=== PATIENT | male | born 1960 | race Caucasian/White ===

== ENCOUNTER 2017-06-27 19:07 | Inpatient (IN) | payer OTHER ==
[~2017-06-27] VITALS: Ht 167.6 cm; Wt 69.5 kg
[~2017-06-27 19:07] MED LIST: AUGMENTIN875 MG PO; AZITHROMYCIN250 MG PO; BETAMETHASONE D45 G1 TP; CELEXA40 MG PO; CITALOPRAM HBR40 MG PO; CLONAZEPAM0.5 MG PO; FOLIC ACID1 MG PO; K-DUR20 MEQ PO; LEVAQUIN750 MG PO; LOSARTAN POTAS100 MG PO; LOSARTAN-HCTZ1 EAC1 PO; METOPROLOL SUCC25 MG PO; MULTIPLE VITAM1 EAC1 PO; NIFEDIPINE ER30 MG PO; NORCO 5/3251 TABLET PO; OMEPRAZOLE20 MG PO; PREDNISONE5 MG PO; ROBITUSSIN AC,T10 ML PO; SPIRIVA RESPIMAT4 GM IH; TYLENOL PM1 CAPLET PO; VITAMIN B-1100 MG PO; XARELTO20 MG PO; ZESTORETIC,P1 TABLE1 PO
[2017-06-27 20:01] LABS: HEMATOCRIT 35.6 % (38.0-50.0); HEMOGLOBIN 13.3 G/DL (12.5-16.6); MCH 37.5 PG (29.0-34.0); MCHC 37.4 G/DL (30.0-36.0); MCV 100.3 FL (86-99); PLATELET COUNT 155 K/uL (156-360); RBC DIS.WIDTH-CV 21.4 % (11.8-14.6); RED BLOOD COUNT 3.55 M/uL (4.00-5.50); WHITE BLOOD COUNT 11.8 K/uL (4.1-10.2)
[2017-06-27 20:11] LABS: CHLORIDE 94 mEq/L (99-109); SODIUM 137 mEq/L (136-147)
[2017-06-27 20:12] LABS: MAGNESIUM 1.2 mg/dL (1.3-2.7)
[2017-06-27 20:14] LABS: GLUCOSE 162 mg/dL (70-99)
[2017-06-27 20:17] LABS: CREATININE 1.2 mg/dL (0.6-1.3); GFR ESTIMATE (CALCULATED) > 59 mL/min/ (58.99-99999); POTASSIUM 1.9 mEq/L (3.7-5.4); SERUM ETHYL ALCOHOL < 10 mg/dL
[2017-06-27 20:19] LABS: UREA NITROGEN (BUN) 7 mg/dL (9-23)
[2017-06-27 20:21] LABS: ACETAMINOPHEN (TYLENOL) < 10 mcg/mL (10-30); SALICYLATE < 5.0 MG/DL (15-30)
[2017-06-27 21:16] LABS: TROP-I INTERPRETATION NEGATIVE; TROPONIN-I 0.02 ng/mL (0.0-0.30)
[2017-06-27] MEDS ORDERED: VITAMIN B-1250 MC3 PO (21:45)
[2017-06-27] MEDS ORDERED: TYLENOL PM EX-1 EACH PO (21:46)
[2017-06-27 22:23] LABS: FOLIC ACID (FOLATE) 3.9 NG/ML (5.0-22.0)
[2017-06-27 23:30] VITALS: BP 144/81
[2017-06-27 23:40] VITALS: BP 142/85
[2017-06-27 23:45] VITALS: BP 144/81
[2017-06-28] VITALS (26 sets, daily range): BP systolic 90–148; BP diastolic 56–92
[2017-06-28 00:29] LABS: INTER. NORMALIZED RATIO 1.7
[2017-06-28 00:32] LABS: PTT 32.7 SEC (25-37)
[2017-06-28 00:36] LABS: ALBUMIN 2.8 g/dL (3.2-4.8); CHLORIDE 99 mEq/L (99-109); SODIUM 137 mEq/L (136-147)
[2017-06-28 00:39] LABS: GLUCOSE 136 mg/dL (70-99); TOTAL PROTEIN 4.6 g/dL (6.4-8.3)
[2017-06-28 00:41] LABS: TOTAL BILIRUBIN 6.1 mg/dL (0.0-1.0)
[2017-06-28 00:42] LABS: ALKALINE PHOSPHATASE 124 IU/L (3-129); GFR ESTIMATE (CALCULATED) > 59 mL/min/ (58.99-99999)
[2017-06-28 00:44] LABS: AST (GOT) 53 IU/L (2-34); DIRECT BILIRUBIN 3.6 mg/dL (0.0-0.3); UREA NITROGEN (BUN) 7 mg/dL (9-23)
[2017-06-28 00:45] LABS: ALT (GPT) 20 IU/L (3-49)
[2017-06-28 00:46] LABS: POTASSIUM 1.6 mEq/L (3.7-5.4)
[2017-06-28 05:41] LABS: ALBUMIN 2.7 G/DL (3.2-4.8); ALKALINE PHOSPHATASE 107 IU/L (3-129); ALT (GPT) 16 IU/L (3-49); AST (GOT) 43 IU/L (2-34); CHLORIDE 100 MEQ/L (99-109); GFR ESTIMATE (CALCULATED) > 59 mL/min/ (58.99-99999); GLUCOSE 136 mg/dL (70-99); SODIUM 138 MEQ/L (136-147); TOTAL BILIRUBIN 6.2 MG/DL (0.0-1.0); TOTAL PROTEIN 4.2 G/DL (6.4-8.3); UREA NITROGEN (BUN) 7 mg/dL (9-23)
[2017-06-28 05:52] LABS: POTASSIUM 1.7 MEQ/L (3.7-5.4)
[2017-06-28 06:18] LABS: HEMATOCRIT 29.9 % (38.0-50.0); MCH 36.1 PG (29.0-34.0); MCHC 35.8 G/DL (30.0-36.0); RBC DIS.WIDTH-CV 21.9 % (11.8-14.6); RED BLOOD COUNT 2.96 M/uL (4.00-5.50); WHITE BLOOD COUNT 8.7 K/uL (4.1-10.2)
[2017-06-28 06:22] LABS: HEMOGLOBIN 10.7 G/DL (12.5-16.6); PLATELET COUNT 99 K/uL (156-360)
[2017-06-28 11:58] LABS: CHLORIDE 103 MEQ/L (99-109); GFR ESTIMATE (CALCULATED) > 59 mL/min/ (58.99-99999); GLUCOSE 191 mg/dL (70-99); SODIUM 138 MEQ/L (136-147); UREA NITROGEN (BUN) 8 mg/dL (9-23)
[2017-06-28 11:59] LABS: POTASSIUM 2.1 MEQ/L (3.7-5.4)
[2017-06-28 18:43] LABS: CHLORIDE 107 MEQ/L (99-109); CREATININE 0.9 MG/DL (0.6-1.3); GFR ESTIMATE (CALCULATED) > 59 mL/min/ (58.99-99999); GLUCOSE 113 mg/dL (70-99); POTASSIUM 2.4 MEQ/L (3.7-5.4); SODIUM 141 MEQ/L (136-147); UREA NITROGEN (BUN) 7 mg/dL (9-23)
[2017-06-29] VITALS (13 sets, daily range): BP systolic 85–124; BP diastolic 59–101
[2017-06-29 00:30] LABS: CHLORIDE 107 mEq/L (99-109); POTASSIUM 2.5 mEq/L (3.7-5.4); SODIUM 137 mEq/L (136-147)
[2017-06-29 00:32] LABS: GLUCOSE 101 mg/dL (70-99)
[2017-06-29 00:36] LABS: CREATININE 0.8 mg/dL (0.6-1.3); GFR ESTIMATE (CALCULATED) > 59 mL/min/ (58.99-99999)
[2017-06-29 00:37] LABS: UREA NITROGEN (BUN) 6 mg/dL (9-23)
[2017-06-29 05:55] LABS: CHLORIDE 110 MEQ/L (99-109); CREATININE 0.8 MG/DL (0.6-1.3); GFR ESTIMATE (CALCULATED) > 59 mL/min/ (58.99-99999); GLUCOSE 84 mg/dL (70-99); MAGNESIUM 2.2 mg/dl (1.3-2.7); PHOSPHORUS 2.2 mg/dL (2.5-4.9); POTASSIUM 2.7 MEQ/L (3.7-5.4); SODIUM 140 MEQ/L (136-147); UREA NITROGEN (BUN) 6 mg/dL (9-23)
[2017-06-29 11:09] LABS: HEPATITIS B SURFACE ANTIGEN Nonreactive; HEPATITIS C ANTIBODY Nonreactive
[2017-06-29 11:10] LABS: ANTI-HEPATITIS A VIRUS (IGM) Nonreactive
[2017-06-29 11:11] LABS: ANTI-HEPATITIS B CORE (IGM) Nonreactive
[2017-06-29 13:18] LABS: CHLORIDE 114 MEQ/L (99-109); CREATININE 0.9 MG/DL (0.6-1.3); GFR ESTIMATE (CALCULATED) > 59 mL/min/ (58.99-99999); GLUCOSE 131 mg/dL (70-99); POTASSIUM 3.3 MEQ/L (3.7-5.4); SODIUM 140 MEQ/L (136-147); UREA NITROGEN (BUN) 6 mg/dL (9-23)
[2017-06-30] VITALS (7 sets, daily range): BP systolic 125–155; BP diastolic 69–89
[2017-06-30 06:48] LABS: BASOPHIL COUNT 0.1 K/uL (0-0.1); EOSINOPHIL (%) 3.9 % (0-5); EOSINOPHIL COUNT 0.3 K/uL (0-0.3); HEMATOCRIT 31.4 % (38.0-50.0); HEMOGLOBIN 10.5 G/DL (12.5-16.6); IMMATURE GRANULOCYTE (%) 0.6 % (0.0-0.7); LYMPHOCYTE (%) 17.4 % (15-42); LYMPHOCYTE COUNT 1.1 K/uL (1.0-2.8); MCHC 33.4 G/DL (30.0-36.0); MCV 107.5 FL (86-99); MONOCYTE (%) 13.5 % (3-12); MONOCYTE COUNT 0.9 K/uL (0-0.8); NEUTROPHIL (%) 62.6 % (45-76); PLATELET COUNT 94 K/uL (156-360); RBC DIS.WIDTH-CV 23.7 % (11.8-14.6); RBC DIS.WIDTH-SD 90.1 % (39-53); RED BLOOD COUNT 2.92 M/uL (4.00-5.50); WHITE BLOOD COUNT 6.4 K/uL (4.1-10.2)
[2017-06-30 06:59] LABS: ALBUMIN 2.2 G/DL (3.2-4.8); ALKALINE PHOSPHATASE 109 IU/L (3-129); ALT (GPT) 19 IU/L (3-49); AST (GOT) 55 IU/L (2-34); CHLORIDE 120 MEQ/L (99-109); CREATININE 0.8 MG/DL (0.6-1.3); GFR ESTIMATE (CALCULATED) > 59 mL/min/ (58.99-99999); GLUCOSE 113 mg/dL (70-99); POTASSIUM 2.9 MEQ/L (3.7-5.4); SODIUM 146 MEQ/L (136-147); TOTAL BILIRUBIN 3.6 MG/DL (0.0-1.0); TOTAL PROTEIN 3.9 G/DL (6.4-8.3); UREA NITROGEN (BUN) 5 mg/dL (9-23)
[2017-06-30 18:39] LABS: APPEARANCE SL.HAZY ((CLEAR)); BILIRUBIN NEGATIVE; BLOOD SMALL; COLOR YELLOW ((YELLOW)); GLUCOSE (STRIP) NEGATIVE; KETONES NEGATIVE; LEUKOCYTES NEGATIVE; NITRITE NEGATIVE; PROTEIN (STRIP) NEGATIVE; SPECIFIC GRAVITY 1.012 (1.000-1.030); UROBILINOGEN 0.2 MG/DL (0.2-1.0)
[2017-06-30 18:56] LABS: BACTERIA RARE /HPF; EPITHELIAL CELLS NONE SEEN /HPF; MUCUS TRACE /LPF; RED BLOOD CELLS 0-5 /HPF (0-5)
[2017-07-01 03:13] VITALS: BP 132/71
[2017-07-01 05:39] LABS: APPEARANCE SL.HAZY ((CLEAR)); BILIRUBIN NEGATIVE; BLOOD LARGE; COLOR YELLOW ((YELLOW)); GLUCOSE (STRIP) NEGATIVE; KETONES NEGATIVE; LEUKOCYTES NEGATIVE; NITRITE NEGATIVE; PROTEIN (STRIP) NEGATIVE; SPECIFIC GRAVITY 1.012 (1.000-1.030); UROBILINOGEN 0.2 MG/DL (0.2-1.0)
[2017-07-01 05:52] LABS: BACTERIA RARE /HPF; EPITHELIAL CELLS NONE SEEN /HPF; MUCUS TRACE /LPF; RED BLOOD CELLS TNTC /HPF (0-5); WHITE BLOOD CELLS 0-5 /HPF (0-5)
[2017-07-01 06:03] LABS: HEMATOCRIT 33.7 % (38.0-50.0); MCH 36.2 PG (29.0-34.0); MCHC 32.6 G/DL (30.0-36.0); MCV 110.9 FL (86-99); PLATELET COUNT 91 K/uL (156-360); RBC DIS.WIDTH-CV 23.8 % (11.8-14.6); RBC DIS.WIDTH-SD 93.6 % (39-53); RED BLOOD COUNT 3.04 M/uL (4.00-5.50); WHITE BLOOD COUNT 7.5 K/uL (4.1-10.2)
[2017-07-01 06:23] LABS: CHLORIDE 120 MEQ/L (99-109); CREATININE 0.8 MG/DL (0.6-1.3); GFR ESTIMATE (CALCULATED) > 59 mL/min/ (58.99-99999); GLUCOSE 110 mg/dL (70-99); PHOSPHORUS 2.3 mg/dL (2.5-4.9); POTASSIUM 3.4 MEQ/L (3.7-5.4); SODIUM 147 MEQ/L (136-147); UREA NITROGEN (BUN) 4 mg/dL (9-23)
[2017-07-01 06:24] LABS: MAGNESIUM 1.7 mg/dl (1.3-2.7)
[2017-07-01 07:36] VITALS: BP 141/82
[2017-07-01 13:16] VITALS: BP 135/92
[2017-07-01 15:35] VITALS: BP 137/82
[2017-07-01 20:00] VITALS: BP 125/76
[2017-07-01 23:58] VITALS: BP 119/78
[2017-07-02 04:00] VITALS: BP 133/92
[2017-07-02 05:25] LABS: BASOPHIL (%) 1.5 % (0-1); BASOPHIL COUNT 0.1 K/uL (0-0.1); EOSINOPHIL (%) 3.8 % (0-5); EOSINOPHIL COUNT 0.3 K/uL (0-0.3); HEMATOCRIT 33.6 % (38.0-50.0); HEMOGLOBIN 11.1 G/DL (12.5-16.6); IMMATURE GRANULOCYTE (%) 0.4 % (0.0-0.7); LYMPHOCYTE (%) 16.3 % (15-42); LYMPHOCYTE COUNT 1.2 K/uL (1.0-2.8); MONOCYTE (%) 13.4 % (3-12); NEUTROPHIL (%) 64.6 % (45-76); NEUTROPHIL COUNT 4.6 K/uL (1.8-6.4); PLATELET COUNT 83 K/uL (156-360); RBC DIS.WIDTH-CV 23.7 % (11.8-14.6); RBC DIS.WIDTH-SD 95.2 % (39-53); WHITE BLOOD COUNT 7.1 K/uL (4.1-10.2)
[2017-07-02 05:56] LABS: CHLORIDE 121 MEQ/L (99-109); CREATININE 0.9 MG/DL (0.6-1.3); GFR ESTIMATE (CALCULATED) > 59 mL/min/ (58.99-99999); GLUCOSE 122 mg/dL (70-99); POTASSIUM 3.8 MEQ/L (3.7-5.4); SODIUM 149 MEQ/L (136-147); UREA NITROGEN (BUN) 5 mg/dL (9-23)
[2017-07-02 07:40] VITALS: BP 115/70
[2017-07-02 11:36] LABS: ALBUMIN 2.4 G/DL (3.2-4.8); ALKALINE PHOSPHATASE 105 IU/L (3-129); ALT (GPT) 25 IU/L (3-49); AST (GOT) 53 IU/L (2-34); DIRECT BILIRUBIN 1.8 mg/dL (0.0-0.3); TOTAL BILIRUBIN 3.9 MG/DL (0.0-1.0); TOTAL PROTEIN 4.1 G/DL (6.4-8.3)
[2017-07-02 15:52] LABS: C DIFF TOXIN NEGATIVE (NEGATIVE)
[2017-07-03 00:35] VITALS: BP 121/72
[2017-07-03 06:06] LABS: BASOPHIL COUNT 0.1 K/uL (0-0.1); EOSINOPHIL (%) 4.5 % (0-5); EOSINOPHIL COUNT 0.3 K/uL (0-0.3); HEMATOCRIT 36.3 % (38.0-50.0); IMMATURE GRANULOCYTE (%) 0.2 % (0.0-0.7); LYMPHOCYTE (%) 21.1 % (15-42); LYMPHOCYTE COUNT 1.4 K/uL (1.0-2.8); MCH 37.3 PG (29.0-34.0); MCHC 33.1 G/DL (30.0-36.0); MCV 112.7 FL (86-99); MONOCYTE (%) 13.8 % (3-12); MONOCYTE COUNT 0.9 K/uL (0-0.8); NEUTROPHIL (%) 58.4 % (45-76); NEUTROPHIL COUNT 3.7 K/uL (1.8-6.4); PLATELET COUNT 82 K/uL (156-360); RED BLOOD COUNT 3.22 M/uL (4.00-5.50); WHITE BLOOD COUNT 6.4 K/uL (4.1-10.2)
[2017-07-03 06:47] LABS: ALBUMIN 2.4 G/DL (3.2-4.8); ALKALINE PHOSPHATASE 108 IU/L (3-129); ALT (GPT) 25 IU/L (3-49); AST (GOT) 58 IU/L (2-34); CHLORIDE 120 MEQ/L (99-109); CREATININE 0.8 MG/DL (0.6-1.3); GFR ESTIMATE (CALCULATED) > 59 mL/min/ (58.99-99999); SODIUM 147 MEQ/L (136-147); TOTAL BILIRUBIN 4.5 MG/DL (0.0-1.0); TOTAL PROTEIN 4.2 G/DL (6.4-8.3); UREA NITROGEN (BUN) 6 mg/dL (9-23)
[2017-07-03 06:50] LABS: GLUCOSE 80 mg/dL (70-99); MAGNESIUM 1.4 mg/dl (1.3-2.7); POTASSIUM 5.5 MEQ/L (3.7-5.4)
[2017-07-03 09:05] VITALS: BP 112/70
[2017-07-03 12:29] LABS: CHLORIDE 118 MEQ/L (99-109); CREATININE 0.8 MG/DL (0.6-1.3); GFR ESTIMATE (CALCULATED) > 59 mL/min/ (58.99-99999); POTASSIUM 5.8 MEQ/L (3.7-5.4); SODIUM 145 MEQ/L (136-147); UREA NITROGEN (BUN) 6 mg/dL (9-23)
[2017-07-03 12:37] LABS: GLUCOSE 104 mg/dL (70-99)
[2017-07-03 16:32] VITALS: BP 104/62
[2017-07-03 23:45] VITALS: BP 132/78
[2017-07-04 06:33] LABS: HEMATOCRIT 37.6 % (38.0-50.0); HEMOGLOBIN 12.2 G/DL (12.5-16.6); MCH 36.9 PG (29.0-34.0); MCHC 32.4 G/DL (30.0-36.0); MCV 113.6 FL (86-99); PLATELET COUNT 85 K/uL (156-360); RED BLOOD COUNT 3.31 M/uL (4.00-5.50); WHITE BLOOD COUNT 6.7 K/uL (4.1-10.2)
[2017-07-04 06:59] LABS: ALBUMIN 2.4 G/DL (3.2-4.8); ALKALINE PHOSPHATASE 99 IU/L (3-129); ALT (GPT) 29 IU/L (3-49); AST (GOT) 71 IU/L (2-34); BASOPHIL (%) 2.1 % (0-1); BASOPHIL COUNT 0.1 K/uL (0-0.1); CHLORIDE 115 MEQ/L (99-109); CREATININE 0.8 MG/DL (0.6-1.3); EOSINOPHIL (%) 3.9 % (0-5); EOSINOPHIL COUNT 0.3 K/uL (0-0.3); GFR ESTIMATE (CALCULATED) > 59 mL/min/ (58.99-99999); IMMATURE GRANULOCYTE (%) 0.3 % (0.0-0.7); LYMPHOCYTE (%) 27.6 % (15-42); LYMPHOCYTE COUNT 1.9 K/uL (1.0-2.8); MONOCYTE COUNT 0.9 K/uL (0-0.8); NEUTROPHIL (%) 53.1 % (45-76); NEUTROPHIL COUNT 3.6 K/uL (1.8-6.4); POTASSIUM 5.3 MEQ/L (3.7-5.4); SODIUM 147 MEQ/L (136-147); TOTAL BILIRUBIN 4.4 MG/DL (0.0-1.0); TOTAL PROTEIN 4.2 G/DL (6.4-8.3); UREA NITROGEN (BUN) 8 mg/dL (9-23)
[2017-07-04 07:03] LABS: GLUCOSE 74 mg/dL (70-99)
[2017-07-04 08:13] VITALS: BP 118/73
[2017-07-04 15:53] VITALS: BP 98/55
[2017-07-05] VITALS: BP 107/72
[2017-07-05 06:24] LABS: ALBUMIN 2.2 G/DL (3.2-4.8); ALKALINE PHOSPHATASE 91 IU/L (3-129); ALT (GPT) 30 IU/L (3-49); AST (GOT) 75 IU/L (2-34); CHLORIDE 110 MEQ/L (99-109); CREATININE 0.9 MG/DL (0.6-1.3); GFR ESTIMATE (CALCULATED) > 59 mL/min/ (58.99-99999); GLUCOSE 83 mg/dL (70-99); POTASSIUM 4.5 MEQ/L (3.7-5.4); SODIUM 140 MEQ/L (136-147); TOTAL BILIRUBIN 3.2 MG/DL (0.0-1.0); TOTAL PROTEIN 3.8 G/DL (6.4-8.3); UREA NITROGEN (BUN) 9 mg/dL (9-23)
[2017-07-05 09:39] VITALS: BP 108/67
[2017-07-05 11:09] VITALS: BP 108/66
[2017-07-05 12:45] VITALS: BP 108/66
[2017-07-05] MEDS ORDERED: XIFAXAN550 MG PO (15:05)
[2017-07-05] MEDS ORDERED: SPIRONOLACTONE50 MG PO (15:05)
[2017-07-05] MEDS ORDERED: TAMSULOSIN HCL0.4 MG PO (15:05)
[2017-07-05] MEDS ORDERED: LOSARTAN POTASS50 MG PO (15:05)
[2017-07-05] MEDS ORDERED: FOLIC ACID1 MG PO (15:06)
[2017-07-05] MEDS ORDERED: THIAMINE HCL100 MG PO (15:07)
[2017-07-05] MEDS ORDERED: LACTULOSE10 GM/151 PO (15:07)
[2017-07-05 16:09] VITALS: BP 112/72
== END 2017-07-05 17:36 | disposition home health service (06) | DRG 432 ==
LOC: EME → EDBD 19:07 → EDOF 21:29 → 4WEST 21:29 → ENRESERV 21:30 → 4WEST 23:21 → ENRESERV 06-29 11:55 → CANRESERV 06-29 11:55 → ENRESERV 06-29 12:44 → 5SOUTH 06-29 14:55
PROVIDERS: Emergency Medicine; Family Medicine; Hospitalist; Internal Medicine Critical Care Medicine; Internal Medicine Nephrology; Physician Assistant; Surgery
DX: K70.40 Alcoholic hepatic failure without coma (principal); G93.41 Metabolic encephalopathy; F10.231 Alcohol dependence with withdrawal delirium; E87.2 Acidosis; E87.0 Hyperosmolality and hypernatremia; F05 Delirium due to known physiological condition; D68.9 Coagulation defect, unspecified; F33.9 Major depressive disorder, recurrent, unspecified; K70.30 Alcoholic cirrhosis of liver without ascites; Z66 Do not resuscitate; K76.0 Fatty (change of) liver, not elsewhere classified; K21.9 Gastro-esophageal reflux disease without esophagitis; I10 Essential (primary) hypertension; R31.29 Other microscopic hematuria; Y90.0 Blood alcohol level of less than 20 mg/100 ml; E87.8 Other disorders of electrolyte and fluid balance, not elsewhere classified; J44.9 Chronic obstructive pulmonary disease, unspecified; K70.11 Alcoholic hepatitis with ascites; E87.6 Hypokalemia; E87.5 Hyperkalemia; E83.42 Hypomagnesemia; E83.39 Other disorders of phosphorus metabolism; D69.6 Thrombocytopenia, unspecified; D64.9 Anemia, unspecified; F41.9 Anxiety disorder, unspecified; R33.9 Retention of urine, unspecified; R39.198 Other difficulties with micturition; R44.1 Visual hallucinations; Z90.49 Acquired absence of other specified parts of digestive tract; Z85.828 Personal history of other malignant neoplasm of skin; Z86.711 Personal history of pulmonary embolism; Z86.718 Personal history of other venous thrombosis and embolism; Z87.11 Personal history of peptic ulcer disease; Z87.891 Personal history of nicotine dependence; Z91.81 History of falling; Z91.83 Wandering in diseases classified elsewhere; Z63.0 Problems in relationship with spouse or partner; Z63.8 Other specified problems related to primary support group; Z79.51 Long term (current) use of inhaled steroids; Z82.49 Family history of ischemic heart disease and other diseases of the circulatory system; Z82.5 Family history of asthma and other chronic lower respiratory diseases
CPT/HCPCS: 70450; 71045; 76705; 80048; 80048 91; 80053; 80074; 80076; 80306 90; 81003; 82140; 82436; 82607; 82746; 83735; 84100; 84133; 84300; 84425 90; 84484; 85025; 85027; 85610; 85730; 87493; 87641; 93005; 94640; 94640 76; 97530 GP; 99202; 99281; 99285; G0480; J0610; J0696; J1644; J1940; J2060; J3411; J3475; J3480; J7030; J7050

== ENCOUNTER 2017-07-24 13:26 | Emergency (ER) | payer OTHER ==
[~2017-07-24] VITALS: Ht 167.6 cm; Wt 70.5 kg
[~2017-07-24 13:26] MED LIST changes: +LACTULOSE10 GM/151 PO; +LOSARTAN POTASS50 MG PO; +SPIRONOLACTONE50 MG PO; +TAMSULOSIN HCL0.4 MG PO; +THIAMINE HCL100 MG PO; +TYLENOL PM EX-1 EACH PO; +VITAMIN B-1250 MC3 PO; +XIFAXAN550 MG PO
[2017-07-24 14:34] LABS: HEMATOCRIT 31.5 % (38.0-50.0); MCH 37.2 PG (29.0-34.0); MCHC 34.9 G/DL (30.0-36.0); MCV 106.4 FL (86-99); PLATELET COUNT 74 K/uL (156-360); RBC DIS.WIDTH-CV 15.9 % (11.8-14.6); RBC DIS.WIDTH-SD 62.5 % (39-53); RED BLOOD COUNT 2.96 M/uL (4.00-5.50); WHITE BLOOD COUNT 5.5 K/uL (4.1-10.2)
[2017-07-24 14:41] LABS: ALBUMIN 2.6 g/dL (3.2-4.8); CHLORIDE 103 mEq/L (99-109); POTASSIUM 3.5 mEq/L (3.7-5.4); SODIUM 138 mEq/L (136-147)
[2017-07-24 14:44] LABS: GLUCOSE 108 mg/dL (70-99); TOTAL PROTEIN 4.6 g/dL (6.4-8.3)
[2017-07-24 14:45] LABS: TOTAL BILIRUBIN 4.8 mg/dL (0.0-1.0)
[2017-07-24 14:47] LABS: CREATININE 0.7 mg/dL (0.6-1.3); GFR ESTIMATE (CALCULATED) > 59 mL/min/ (58.99-99999); SERUM ETHYL ALCOHOL 105 mg/dL
[2017-07-24 14:48] LABS: ALKALINE PHOSPHATASE 133 IU/L (3-129)
[2017-07-24 14:49] LABS: AST (GOT) 137 IU/L (2-34); UREA NITROGEN (BUN) 4 mg/dL (9-23)
[2017-07-24 14:50] LABS: AMYLASE 37 IU/L (1-118)
[2017-07-24 14:51] LABS: ACETAMINOPHEN (TYLENOL) < 10 mcg/mL (10-30); ALT (GPT) 57 IU/L (3-49); CREATINE KINASE 98 IU/L (1-294); SALICYLATE < 5.0 MG/DL (15-30)
[2017-07-24 14:53] LABS: TROP-I INTERPRETATION NEGATIVE; TROPONIN-I < 0.01 ng/mL (0.0-0.30)
[2017-07-24 14:59] LABS: LIPASE 35 U/L (1.0-51.0)
[2017-07-24 16:40] LABS: APPEARANCE CLEAR ((CLEAR)); BILIRUBIN SMALL; BLOOD NEGATIVE; COLOR AMBER ((YELLOW)); GLUCOSE (STRIP) NEGATIVE; KETONES NEGATIVE; LEUKOCYTES NEGATIVE; NITRITE NEGATIVE; PROTEIN (STRIP) 30; SPECIFIC GRAVITY 1.025 (1.000-1.030); UCUL ADDED? NO
[2017-07-24 17:00] LABS: AMPHETAMINE NEGATIVE (500 ng/mL); BARBITURATES NEGATIVE (200 ng/mL); BENZODIAZEPINES PRESUMPTIVE POSITIVE (150 ng/mL); BUPRENORPHINE NEGATIVE (10 ng/mL); COCAINE NEGATIVE (150 ng/mL); METHADONE NEGATIVE (200 ng/mL); METHAMPHETAMINE NEGATIVE (500 ng/mL); OPIATES (MORPHINE) NEGATIVE (100 ng/mL); OXYCODONE NEGATIVE (100 ng/mL); PHENCYCLIDINE NEGATIVE (25 ng/mL); PROPOXYPHENE NEGATIVE (300 ng/mL); THC CANNABINOIDS NEGATIVE (50 ng/mL); TRICYCLIC ANTIDEPRESSANTS NEGATIVE (300 ng/mL)
[2017-07-24] MEDS ORDERED: VITAMIN B-12250 MCG PO (17:29)
[2017-07-24] MEDS ORDERED: TYLENOL PM EX-1 EACH PO (17:33)
[2017-07-24] MEDS ORDERED: ZYRTEC10 M3 PO (17:33)
[2017-07-24] MEDS ORDERED: ONE DAILY1 EAC3 PO (17:34)
[2017-07-24] MEDS ORDERED: ALDACTONE50 MG PO (17:34)
[2017-07-24 17:35] LABS: BENZODIAZEPINES, URINE SCREEN POSITIVE (200 ng/mL)
[2017-07-24 19:58] VITALS: BP 125/75
== END 2017-07-24 19:59 | disposition left against medical advice (07) ==
LOC: EME 13:26
PROVIDERS: Emergency Medicine
DX: K72.90 Hepatic failure, unspecified without coma (principal); S00.83XA Contusion of other part of head, initial encounter; S30.1XXA Contusion of abdominal wall, initial encounter; F10.229 Alcohol dependence with intoxication, unspecified; R29.6 Repeated falls; W19.XXXA Unspecified fall, initial encounter; W22.09XA Striking against other stationary object, initial encounter; R00.0 Tachycardia, unspecified; R94.31 Abnormal electrocardiogram [ECG] [EKG]; J44.9 Chronic obstructive pulmonary disease, unspecified; I10 Essential (primary) hypertension; F41.9 Anxiety disorder, unspecified; Y90.5 Blood alcohol level of 100-119 mg/100 ml; Z79.52 Long term (current) use of systemic steroids; Z87.891 Personal history of nicotine dependence; Z87.11 Personal history of peptic ulcer disease; Z86.718 Personal history of other venous thrombosis and embolism; Z98.890 Other specified postprocedural states; Z90.49 Acquired absence of other specified parts of digestive tract; Z91.030 Bee allergy status
CPT/HCPCS: 70450; 71045; 71260; 72125; 74177; 80053; 81003; 82140; 82150; 82550; 83690; 83874 90; 84484; 84999; 85027; 86850; 86900; 86901; 93005; 99281; 99285; G0480; J7030